=== PATIENT | male | born 1950 | race Caucasian/White ===

== ENCOUNTER 2016-10-27 16:01 | Emergency (ER) | payer OTHER, MEDICARE ==
[~2016-10-27] VITALS: Ht 167.6 cm; Wt 88.5 kg
[2016-10-27] MEDS ORDERED: COZAAR 50 MG TA50 M2 PO (16:07)
[2016-10-27] MEDS ORDERED: PROTONIX40 M4 PO (16:07)
[2016-10-27] MEDS ORDERED: PRAVACHOL40 MG PO (16:07)
[2016-10-27] MEDS ORDERED: LEVOTHYROXINE 0.1 MG PO (16:07)
[2016-10-27] MEDS ORDERED: BENADRYL25 MG PO (16:07)
[2016-10-27 16:25] LABS: ABSOLUTE NEUTROPHILS 3.5 thou/uL (1.4-8.2); BASOPHILS 0.6 % (0.0-2.0); EOSINOPHILS 4.1 % (0.0-3.0); HEMATOCRIT 46.1 % (42.0-52.0); HEMOGLOBIN 16.1 gm/dL (14.0-18.0); LYMPHOCYTES 32.4 % (24.0-44.0); MCH 31.8 pg (26.0-34.0); MCHC 34.9 % (28.0-37.0); MCV 91.1 fL (80.0-100.0); MONOCYTES 9.6 % (1.0-8.0); PLATELET COUNT 164 thou/uL (150-400); POLYS 53.3 % (36.0-66.0); RBC 5.06 mil/uL (4.50-6.00); RDW 12.9 % (10.5-14.5); WBC 6.6 thou/uL (4.0-11.0)
[2016-10-27 16:27] LABS: MANUAL DIFF NO
[2016-10-27 16:31] LABS: CALCIUM 9.2 mg/dL (8.5-10.1); CREATININE 1.2 mg/dL (0.6-1.3)
[2016-10-27 16:38] LABS: ALBUMIN 3.6 g/dL (3.4-5.0); TOTAL BILIRUBIN 0.7 mg/dL (<0.1-1.0); TOTAL PROTEIN 7.3 g/dL (6.4-8.2)
[2016-10-27] MEDS ORDERED: METFORMIN HCL500 MG PO (17:16)
[2016-10-27] MEDS ORDERED: GLUCOSE TEST S1 EACH IN (17:16)
[2016-10-27 18:12] LABS: URINE BILIRUBIN NEGATIVE (Negative); URINE BLOOD NEGATIVE (Negative); URINE COLOR YELLOW; URINE GLUCOSE-RANDOM* 2+ (Negative); URINE KETONES 1+ (Negative); URINE LEUKOCYTES-REFLEX NEGATIVE (Negative); URINE PROTEIN (DIPSTICK) 1+ (Negative); URINE SPECIFIC GRAVITY >= 1.030 (1.003-1.035); URINE UROBILINOGEN 0.2 E.U./dl (0.2-1.0)
[2016-10-27 18:24] LABS: CASTS None Seen /LPF (None Seen); CRYSTALS None Seen /LPF (None Seen); SQUAMOUS None Seen /LPF (0-3); URINE WBC-REFLEX 0-5 Rare /HPF (0-5)
[2016-10-27 18:25] LABS: URINE RBC None Seen /HPF (0-2)
[2016-10-27 18:42] VITALS: BP 137/82
== END 2016-10-27 18:44 | disposition home or self-care (01) ==
LOC: ER 16:01
PROVIDERS: Emergency Medicine
DX: E11.65 Type 2 diabetes mellitus with hyperglycemia (principal); I10 Essential (primary) hypertension; Z88.5 Allergy status to narcotic agent; Z88.8 Allergy status to other drugs, medicaments and biological substances